=== PATIENT | male | born 1955 | race Caucasian/White ===

== ENCOUNTER 2020-01-25 13:55 | Emergency (ER) | payer MEDICARE, OTHER ==
[2020-01-25 14:10] VITALS: PULSE 102; O2SAT 98
[2020-01-25] MEDS ORDERED: Adacel Vial IM ONE ×2 (14:45→14:49)
--- NOTE | 2020-01-25 14:47 | ERPHSYRPT ---
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 does not think tetanus is up to date. denies pain at this time. noted < 1 cm lac to pad of 4th finger. cap refil < 3 sec and no loss sensation. skin PWD. A&Ox4. ambulatory with steady gate Physician History: 64 years old male presented in the ER with chief complaint of laceration accide ntally by sharp knife when he was sharpening some stuff. Laceration is in the right third digit distal phalanx with bleeding initially but stopped after applying pressure. He is complaining of mild dull aching pain. Not taking any blood thinners. No difficulty movements of finger joints. Occurred: just prior to arrival Method of Injury: incised Quality: constant, sharpness Severity of Pain-Max: mild Severity of Pain-Current: mild Extremities Pain Location: 3rd finger: right Modifying Factors: Improves With: immobilization. Worsens With: movement Associated Symptoms: none Allergies/Adverse Reactions: No Known Drug Allergies Allergy (Unverified 02/22/14 17:40) Home Medications: Acetaminophen 325 mg [Tylenol 325 mg] 650 mg PO Q4HPRN PRN 02/22/14 [History] Cyclobenzaprine HCl 10 mg [Flexeril 10 MG] 10 mg PO DAILY PRN 02/22/14 [History] Gabapentin [Neurontin] 300 mg PO TID PRN 02/22/14 [History] Omeprazole 20 MG [Prilosec 20 mg] 20 mg PO DAILY 02/22/14 [History] Prednisone 10 mg [Deltasone 10 mg] 10 mg PO HS 02/22/14 [History] Simvastatin 20 mg PO DAILY 01/25/20 [History] Hx Tetanus, Diphtheria Vaccination/Date Given: No Hx Influenza Vaccination/Date Given: Yes Hx Pneumococcal Vaccination/Date Given: Yes Immunizations Up to Date: Yes Travel Risk - International Travel Have you traveled outside of the country in past 3 weeks: No - Coronavirus Screening Are you exhibiting any of the following symptoms?: No Close contact with a COVID-19 positive Pt in past 14-21 Days: Yes - Review of Systems Constitutional: No Symptoms Eyes: No Symptoms Ears, Nose, & Throat: No Symptoms Respiratory: No Symptoms Cardiac: No Symptoms Musculoskeletal: Injury Skin: Skin Lesions Neurological: No Symptoms - Past Medical History Pertinent Past Medical History: Yes Neurological History: No Pertinent History ENT History: No Pertinent History Cardiac History: No Pertinent History Respiratory History: COPD, Pneumonia Endocrine Medical History: No Pertinent History Musculoskeletal History: Osteoarthritis, Other GI Medical History: GERD History: No Pertinent History Psycho-Social History: No Pertinent History Male Reproductive Disorders: No Pertinent History Other Medical History: RESTLESS LEG SYNDROM, RA, - Past Surgical History Past Surgical History: Yes Neuro Surgical History: No Pertinent History Cardiac: No Pertinent History Respiratory: No Pertinent History Gastrointestinal: No Pertinent History Genitourinary: No Pertinent History Musculoskeletal: Other Male Surgical History: No Pertinent History Other Surgical History: AMPUTATION OF RIGHT RING FINGER - Social History Smoking Status: Never smoker Exposure to second hand smoke: No Drug Use: none Patient Lives Alone: No - Nursing Vital Signs Nursing Vital Signs: Initial Vital Signs Pulse Rate 102 H 01/25/20 14:00 Respiratory Rate 18 01/25/20 14:00 Blood Pressure 133/93 01/25/20 14:00 O2 Sat by Pulse Oximetry 98 01/25/20 14:00 Pain Scale Pain Intensity 0 - Physical Exam General Appearance: no apparent distress, alert Eyes, Ears, Nose, Throat Exam: pharynx normal Neck Exam: normal inspection, full range of motion Cardiovascular/Respiratory Exam: normal breath sounds, regular rate/rhythm Shoulder Exam: normal inspection Elbow/Forearm Exam: normal inspection Wrist Exam: normal inspection Hand Exam: laceration (2 cm laceration right third digit distal phalanx proximal area just distal to distal interphalangeal joint, superficial, no active bleeding or spurting. Intact range of motion. Distal neurovascular intact.) Neuro/Tendon Exam: normal sensation, normal motor functions, normal tendon functions Mental Status Exam: alert, oriented x 3, cooperative Skin Exam: normal color SpO2 Interpretation: normal SpO2: 98 O2 Delivery: Room Air Procedures - Laceration/Wound Repair Right Volar Finger Wound Location: Right Wound Length (cm): 2 Wound's Depth, Shape: superficial Wound Explored: clean Irrigated: Yes Hibiclens Prep: Yes Anesthesia: 1% Lidocaine Volume Anesthetic (ccs): 4 Wound Repaired With: sutures Suture Size/Type: 4-0, ethilon Number of Sutures: 3 Layer Closure?: No Sterile Dressing Applied?: Yes - Course Nursing assessment & vital signs reviewed: Yes Ordered Tests: Active Orders 24 hr Category Date Time Status Wound Care STAT Care 01/25/20 15:08 Completed Medication Summary Discontinued Medications Generic Name Dose Route Start Last Admin Trade Name Rosanne PRN Reason Stop Dose Admin Bacitracin Zinc 0.9 gm 01/25/20 15:05 01/25/20 15:07 Baciguent Packet TP 01/25/20 15:06 0.9 gm STAT ONE Administration Bacitracin Zinc Confirm 01/25/20 15:06 Baciguent Packet Administered 01/25/20 15:07 Dose 1 gm .ROUTE .STK-MED ONE Diphtheria/Tetanus/Acell Pertussis 0.5 ml 01/25/20 14:45 01/25/20 14:50 Adacel Vial IM 01/25/20 14:46 0.5 ml .ONCE ONE Administration Diphtheria/Tetanus/Acell Pertussis Confirm 01/25/20 14:49 Adacel Vial Administered 01/25/20 14:50 Dose 0.5 ml IM .STK-MED ONE - Progress Progress: improved Progress Note: 01/25/20 laceration is repaired, tetanus is updated. Discussed anticipatory guidance for wound infection and suture removal in 10 days. - Departure Departure Disposition: Home Clinical Impression: Finger laceration Qualifiers: Encounter type: initial encounter Finger: middle finger Damage to nail status: without damage Foreign body presence: without foreign body Laterality: right Qualified Code(s): S61.212A - Laceration without foreign body of right middle finger without damage to nail, initial encounter Condition: Stable Critical Care Time: No Referrals: CHRISTO CALDWELL [Primary Care Provider] - Follow Up with PCP/3 days Additional Instructions: Take Tylenol as needed for pain. Follow-up with primary care for reevaluation. Suture removal in 10 days.
[2020-01-25] MEDS ORDERED: BACIGUENT PACKET TP ONE (15:05)
[2020-01-25] MEDS ORDERED: BACIGUENT PACKET ONE (15:06)
[2020-01-25 15:08] VITALS: BP 119/79
== END 2020-01-25 15:23 | disposition home or self-care (01) ==
LOC: ED 13:55
DX: S61.212A Laceration without foreign body of right middle finger without damage to nail, initial encounter (principal); W26.0XXA Contact with knife, initial encounter; Y92.89 Other specified places as the place of occurrence of the external cause; Z79.899 Other long term (current) drug therapy
CPT/HCPCS: 12001; 90471; 90715; 99283; A9270-GY

== ENCOUNTER 2020-09-24 11:31 | Day surgery (SDC) | payer OTHER, MEDICARE ==
--- NOTE | 2020-09-21 11:36 | HP ---
DATE OF SURGERY: 09/24/2020 HISTORY OF PRESENT ILLNESS: The patient is a 65 year-old with a nonhealing, indurated area on his scalp. It has been going on for a few months and increasing in size. Unclear whether carcinoma or other etiology. PAST MEDICAL HISTORY: Rheumatoid arthritis. Osteoarthritis. Lung disease. PAST SURGICAL HISTORY: Amputated finger. Tendon surgery on right hand. MEDICATIONS: Prednisone, gabapentin, Flexeril, cholesterol medication. ALLERGIES: NKDA. FAMILY HISTORY: Heart disease. SOCIAL HISTORY: No smoking. No alcohol use. REVIEW OF SYSTEMS: Fourteen systems reviewed. No chest pain or palpitations. Other systems negative or noncontributory as above and per preadmission questionnaire. PHYSICAL EXAMINATION: GENERAL: No acute distress. HEENT: Sclerae nonicteric. NECK: No JVD. CHEST: Equal excursion, nonlabored breathing. CVS: Regular rate and rhythm. ABDOMEN: Soft. EXTREMITIES: No significant edema. NEURO: Alert, oriented, moving extremities symmetrically. PSYCH: Appropriate mood and affect. IMPRESSION: On the scalp nonhealing lesion on the right scalp of indeterminate behavior question whether carcinoma or not, needs excisional biopsy possible flap closure possible skin graft. Risks and benefits explained in detail including but not limited to bleeding or infection, risk of involved margins possibly requiring other procedures or need for radiation treatment. Risk of nonhealing of enclosure or skin graft possibly requiring healing by secondary intent. General risk of anesthesia, deep vein thrombosis, pulmonary embolism, pneumonia but not limited to, consent obtained. Will proceed with excisional biopsy scalp nodule or lesion of indeterminate behavior possible flap, possible skin graft as an outpatient. He understands that if we do a skin graft that he will not necessary regrow hair in the area of the skin graft. He understands and agrees to the planned procedure, will proceed as outpatient.
[~2020-09-24 11:31] MED LIST: Lactated Ringers 1,000 ML IV ONE; Sensorcaine 0.25% 10 ML ONE
[2020-09-24] MEDS ORDERED: Lactated Ringers 1,000 ML IV SCH (12:00)
[2020-09-24] MEDS ORDERED: MINERAL OIL LIGHT 10 ML FOR SURGERY ONE (13:42)
[2020-09-24] MEDS ORDERED: Versed 2 MG/2 ML Injection ONE (13:50)
[2020-09-24] MEDS ORDERED: BACIGUENT 30 GM ONE (14:17)
[2020-09-24] MEDS ORDERED: KEFZOL 1 GM ONE ×2 (14:25)
[2020-09-24] MEDS ORDERED: DIPRIVAN 200 MG/20 ML IV ONE (14:26)
[2020-09-24] MEDS ORDERED: Quelicin Fliptop 200 MG/10 ML ONE (14:26)
[2020-09-24] MEDS ORDERED: ROBINUL ONE (14:26)
[2020-09-24] MEDS ORDERED: TORAdol 30 mg Injection ONE (14:53)
[2020-09-24 16:33] VITALS: BP 154/85; PULSE 74; O2SAT 97
--- NOTE | 2020-09-25 09:02 | OP ---
SURGERY DATE/TIME: 09/24/2020 5468 PREOPERATIVE DIAGNOSIS: Nonhealing ulcerated right [place] area lesion concern for carcinoma. POSTOPERATIVE DIAGNOSIS: Nonhealing ulcerated right [place] area lesion concern for carcinoma, path pending. PROCEDURE: Excisional biopsy right baptist/face area nonhealing ulcerated lesion of indeterminate behavior (approximately 4.4 cm) with margins with intermediate closure with local advancement flaps. SURGEON: Dr. Vinod Zarco. ANESTHESIA: General. ESTIMATED BLOOD LOSS: Minimal. INDICATIONS: As noted above. Risks and benefits explained in detail and not limited to and consent obtained. The site was marked and confirmed with the patient in the preoperative holding area. DESCRIPTION OF PROCEDURE AND FINDINGS: He was taken to the operating room. General anesthesia induced. Prepped and draped in usual sterile fashion. After official time out and no disagreement with planned procedure, marking out around this area revealed a 4 x 4 cm excision with margins of this ulcerated nonhealing lesion and passed off for pathology. As he did have a little bit of loose skin inferiorly, it was felt attempt at local advancement flaps would be of stronger closure than relying on a skin graft. Therefore a small corner was taken out medially and the flaps advanced, undermined and advanced back to the midline with interrupted 3-0 Vicryl. Skin is closed with interrupted 3-0 Prolene and vertical mattress, interrupted 4-0 Prolene and vertical mattress and interrupted 5-0 Prolene and vertical mattress fashion. 0.25% Marcaine local had been injected in field pattern around the area. Antibiotic ointment sterile dressing and head wrap given to the patient. The patient tolerated the procedure well. There is no family available in the waiting area. When I finish the case will check back later to see if someone showed up. Otherwise he is going to be sore. Will send off as there is concern whether this is carcinoma but was able to get around this area and avoid a skin graft at least at this setting. The patient tolerated the procedure well. There were no immediate complications.
== END 2020-09-24 16:10 | disposition home or self-care (01) ==
LOC: SDC 11:31
PROVIDERS: ATTEND Surgery
DX: C44.41 Basal cell carcinoma of skin of scalp and neck (principal)
CPT/HCPCS: J0330; J0690; J1885; J2250; J2704; A9270-GY